=== PATIENT | male | born 1985 | race African-American/Black ===

== ENCOUNTER 2023-05-03 13:20 | Emergency (ER) | payer OTHER ==
--- NOTE | 2023-05-03 14:02 | RAD REPORT ---
EXAM DESCRIPTION: CT - Head Brain Wo Cont - 05/03/2023 1:49 pm CLINICAL HISTORY: WEAKNESS Headache, drowsiness, syncope COMPARISON: No comparisons TECHNIQUE: All CT scans are performed using dose optimization technique as appropriate and may inclu de automated exposure control or mA/KV adjustment according to patient size. FINDINGS: No intracranial hemorrhage, hydrocephalus or extra-axial fluid collection.No areas of brai n edema or evidence of midline shift. The paranasal sinuses and mastoids are clear. The calvarium is intact. IMPRESSION: No acute intracranial abnormality.
[2023-05-03 14:03] LABS: Absolute Lymphocytes (CBC) 1.2 K/uL (0.7-4.9); Hematocrit 37.1 % (39.6-49.0); Lymphocytes % 27.6 % (15.3-44.8); MCV 92.5 fL (80-100); MPV 9.6 fL (7.6-11.3); RBC Red Blood Cell Count 4.01 M/uL (4.33-5.43)
[2023-05-03] MEDS ORDERED: ACETAMINOPHEN 500 MG TAB ONE (14:03)
[2023-05-03] MEDS ORDERED: NA CHLORIDE 0.9% 1,000 ML ONE (14:03)
[2023-05-03] MEDS ORDERED: ONDANSETRON 4 MG/2 ML VIAL ONE (14:03)
[2023-05-03] MEDS ORDERED: FAMOTIDINE 20 MG/2 ML VIAL IV ONE (14:03)
[2023-05-03 14:21] LABS: Bilirubin Direct 0.2 mg/dL (0-0.2); Bilirubin Total 0.6 mg/dL (0.2-1.0); Potassium 3.7 mEq/L (3.5-5.1)
[2023-05-03 14:22] LABS: Albumin 3.9 g/dL (3.4-5.0); Bilirubin Indirect, Calculated 0.4 mg/dL (0.2-0.8); Magnesium 2.1 mg/dL (1.6-2.4); Troponin High Sensitivity 9.8 pg/mL (<58.9)
[2023-05-03 14:51] LABS: Platelet Estimate DECR; White Blood Cell Scan OK (OK)
[2023-05-03 14:52] LABS: Blood Morphology Comment NOT SEEN (NOT SEEN)
--- NOTE | 2023-05-03 14:58 | ER ---
Nurse's Notes [facility] Name: Fernando Thompson Age: 37 yrs Sex: Male : 1985 Arrival Date: 05/03/2023 Time: 13:20 Bed 3 Private MD: Diagnosis: Weakness;Altered mental status, unspecified Presentation: 05/03 13:26 Chief complaint: EMS states: Toned out for vomiting and syncopal episode. Pt denies jl7 LOC, reports "I was working out, stretching and vomited." Denies loss of consciousness. Reports chronic low back pain that worse today. Coronavirus screen: At this time, the client does not indicate any symptoms associated with coronavirus-19. Ebola Screen: No symptoms or risks identified at this time. Initial Sepsis Screen: Does the patient meet any 2 criteria? No. Patient's initial sepsis screen is negative. Does the patient have a suspected source of infection? No. Patient's initial sepsis screen is negative. Risk Assessment: Do you want to hurt yourself or someone else? Patient reports no desire to harm self or others. Onset of symptoms is unknown. Care prior to arrival: IV initiated. 18 GA, in the right antecubital area, Glucose check: 107. 13:26 Method Of Arrival: EMS: [facility] 7 13:26 Acuity: LETICIA 3 jl7 Triage Assessment: 13:29 General: Appears in no apparent distress. uncomfortable, Behavior is calm, cooperative, jl7 appropriate for age. Pain: Complains of pain in left low back Pain currently is 9 out of 10 on a pain scale. Neuro: Level of Consciousness is awake, alert, obeys commands, Oriented to person, place, time, situation. Cardiovascular: Patient's skin is warm and dry. Respiratory: Airway is patent Respiratory effort is even, unlabored, Respiratory pattern is regular, symmetrical. GI: Reports nausea, vomiting, Patient currently denies diarrhea. Derm: Skin is pink, warm \\T\\ dry. Historical: - Allergies: 13:29 PENICILLINS; jl7 - Home Meds: 13:29 None [Active]; jl7 - PMHx: 13:29 None; jl7 - Immunization history:: Adult Immunizations unknown. - Social history:: Smoking status: unknown. Screenin:33 [facility] ED Fall Risk Assessment (Adult) History of falling in the last 3 months, jl7 including since admission No falls in past 3 months (0 pts) Confusion or Disorientation No (0 pts) Intoxicated or Sedated No (0 pts) Impaired Gait No (0 pts) Mobility Assist Device Used No (0 pt) Altered Elimination No (0 pt) Score/Fall Risk Level 0 - 2 = Low Risk Oriented to surroundings, Maintained a safe environment. Abuse screen: Denies threats or abuse. Denies injuries from another. Nutritional screening: No deficits noted. Tuberculosis screening: No symptoms or risk factors identified. Assessment: 13:45 General: See triage assessment. jl7 14:45 Reassessment: Patient appears in no apparent distress at this time. No changes from jl7 previously documented assessment. Patient and/or family updated on plan of care and expected duration. Pain level reassessed. Patient is alert, oriented x 3, equal unlabored respirations, skin warm/dry/pink. Vital Signs: 13:26 BP 107 / 64; Pulse 70; Resp 15; Temp 98.8; Pulse Ox 95% ; Pain 9/10; jl7 15:00 BP 132 / 79; Pulse 52; Resp 15; Pulse Ox 100% ; jl7 13:26 Pain Scale: Adult jl7 ED Course: 13:23 Patient arrived in ED. kc6 13:24 Aguila Carl MD is Attending Physician. kdr 13:26 Umu Ramsey, JULISA is Primary Nurse. jl7 13:29 Triage completed. jl7 13:29 Arm band placed on right wrist. jl7 13:33 Patient has correct armband on for positive identification. jl7 13:45 No provider procedures requiring assistance completed. Maintain EMS IV. Dressing jl7 intact. Good blood return noted. Site clean \\T\\ dry. Gauge \\T\\ site: 18left FA. 13:45 Initial lab(s) drawn, by ED staff, sent to lab. EKG done, by ED staff, reviewed by brock Carl MD. 13:50 CT Head Brain wo Cont In Process Unspecified. EDMS 15:08 XRAY Chest (1 view) In Process Unspecified. EDMS 15:33 IV discontinued, intact, bleeding controlled, No redness/swelling at site. Pressure jl7 dressing applied. Administered Medications: 14:05 Drug: NS 0.9% IV 1000 ml Route: IV; Rate: 1 bolus; Site: right antecubital; jl7 14:05 Drug: Ondansetron IVP 4 mg Route: IVP; Site: right antecubital; jl7 14:09 Drug: Famotidine IVP 20 mg Route: IVP; Site: right antecubital; jl7 14:12 Drug: Acetaminophen PO 1000 mg Route: PO; jl7 Medication: 13:33 VIS not applicable for this client. jl7 Outcome: 14:57 Discharge ordered by . kdr 15:33 Discharged to Law Enforcement jl7 15:33 Condition: stable 15:33 Discharge instructions given to patient, police, Instructed on discharge instructions, follow up and referral plans. medication usage, Demonstrated understanding of instructions, follow-up care, medications, Prescriptions given X 1. 15:35 Patient left the ED. jl7 Signatures: Dispatcher [employer] EDMS Aguila Carl MD MD kdr Leal, Jahala RN RN jl7 Padmini Lockett RN RN kc6
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
[2023-05-03 15:51] VITALS: TEMP 98.8
[2023-05-03 15:52] VITALS: BP 132/79; O2SAT 100
--- NOTE | 2023-05-03 16:55 | RAD REPORT ---
EXAM DESCRIPTION: RAD - Chest Single View - 05/03/2023 4:50 pm CLINICAL HISTORY: weakness Chest pain. COMPARISON: No comparisons FINDINGS: Portable technique limits examination quality. The lungs are grossly clear. The heart is normal in size. No displaced fractures. IMPRESSION: No acute intrathoracic process suspected.
--- NOTE | 2023-05-05 12:35 | EKG ---
Test Date: 2023-05-03 Test Time: 14:19:27 Bracelet Former: LATA MEASUREMENT RESULTS: Intervals: Rate: 51 AK: 154 QRSD: 96 QT: 424 QTc: 390 [place]: P: 28 AK: 154 QRS: 73 T: 49 INTERPRETIVE STATEMENTS: Sinus bradycardia Otherwise normal ECG No previous ECG available for comparison Electronically Signed On 05-05-23 12:33:26 CDT by Ger Blackburn
== END 2023-05-03 15:35 | disposition home or self-care (01) ==
LOC: ER 13:20
DX: R41.82 Altered mental status, unspecified (principal); R53.1 Weakness; Z88.0 Allergy status to penicillin
CPT/HCPCS: 93005; 85025; 80048; 36415; 83735; 80076; 84484; 83880; 70450; 71045; 96375; 96374; 99284; J2405; J7030

== ENCOUNTER 2023-09-03 23:38 | Emergency (ER) | payer OTHER ==
[2023-09-04 00:16] LABS: Absolute Lymphocytes (CBC) 1.5 K/uL (0.7-4.9); Hematocrit 36.5 % (39.6-49.0); Lymphocytes % 13.5 % (15.3-44.8); MCV 92.1 fL (80-100); MPV 8.5 fL (7.6-11.3); Platelets 193 thou/uL (152-406); RBC Red Blood Cell Count 3.96 M/uL (4.33-5.43)
[2023-09-04 00:28] LABS: Potassium 3.8 mEq/L (3.5-5.1)
[2023-09-04 01:17] LABS: Specific Gravity 1.017 (1.005-1.030); Urine Bilirubin NEGATIVE (Negative); Urine Blood Negative (Negative); Urine Clarity Clear (Clear); Urine Color Colorless (Yellow); Urine Glucose NEGATIVE (Negative); Urine Protein NEGATIVE (Negative); Urine Urobilinogen Normal (Normal)
[2023-09-04] MEDS ORDERED: IBUPROFEN 400 MG TAB ONE (02:04)
[2023-09-04] MEDS ORDERED: HYDROCODONE/APAP 10/325 TAB ONE (02:05)
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
[2023-09-04 02:35] VITALS: BP 136/73; TEMP 98.3; O2SAT 100
--- NOTE | 2023-09-04 13:49 | RAD REPORT ---
EXAM DESCRIPTION: CT - Head C Spine Cap Ivory Bass - 09/04/2023 6:28 am CLINICAL HISTORY: The patient is 37 years old and is Male; TRAUMA The patient is 37 years old and is Male; TRAUMA TECHNIQUE: Axial computed tomography images of the head/brain and cervical spine with intravenous co ntrast. Sagittal and coronal reformatted images were created and reviewed. This CT exam was perfo rmed using one or more of the following dose reduction techniques: automated exposure control, adju stment of the mA and/or kV according to patient size, and/or use of iterative reconstruction techniqu e. DLP: 2197 mGy*cm COMPARISON: None. FINDINGS: BRAIN: Unremarkable. No hemorrhage. No edema. Normal enhancement. VENTRICLES: Unremarkable. No ventriculomegaly. SKULL: No acute fracture. SINUSES: Unremarkable as visualized. No acute sinusitis. MASTOID AIR CELLS: Unremarkable as visualized. No mastoid effusion. VERTEBRAE: Unremarkable. No acute fracture. Normal alignment. DISCS/SPINAL CANAL/NEURAL FORAMINA: No acute findings. No spinal canal stenosis. SOFT TISSUES: Right parietal occipital scalp swelling. IMPRESSION: 1. Right parietal occipital scalp swelling. 2. No acute intracranial abnormality. 3. No acute cervical spine fracture or subluxation. EXAM DESCRIPTION: CT Chest, Abdomen and Pelvis With Intravenous Contrast CLINICAL HISTORY: The patient is 37 years old and is Male; TRAUMA The patient is 37 years old and is Male; TRAUMA TECHNIQUE: Axial computed tomography images of the chest, abdomen and pelvis with intravenous contra st. Sagittal and coronal reformatted images were created and reviewed. This CT exam was performed using one or more of the following dose reduction techniques: automated exposure control, adjustme nt of the mA and/or kV according to patient size, and/or use of iterative reconstruction technique. COMPARISON: None. FINDINGS: CHEST: LUNGS: Unremarkable. No mass. No consolidation. PLEURAL SPACE: Unremarkable. No significant effusion. No pneumothorax. HEART: Unremarkable. No cardiomegaly. No significant pericardial effusion. No significant cor onary artery calcifications. MEDIASTINUM: Soft tissue density in the anterior mediastinum, likely thymic remnant. ABDOMEN: LIVER: Unremarkable. No mass. GALLBLADDER AND BILE DUCTS: Unremarkable. No calcified stones. No ductal dilation. PANCREAS: Unremarkable. No ductal dilation. No mass. SPLEEN: Unremarkable. No splenomegaly. ADRENALS: Unremarkable. No mass. KIDNEYS AND URETERS: Unremarkable. No hydronephrosis. No solid mass. STOMACH AND BOWEL: Unremarkable. No obstruction. No mucosal thickening. PELVIS: APPENDIX: No findings to suggest acute appendicitis. BLADDER: Unremarkable. No mass. REPRODUCTIVE: Unremarkable as visualized. CHEST, ABDOMEN and PELVIS: INTRAPERITONEAL SPACE: Unremarkable. No significant fluid collection. No free air. BONES/JOINTS: Acute fracture of the left L2 and L3 transverse processes. No dislocation. SOFT TISSUES: Unremarkable. VASCULATURE: Unremarkable. No aortic aneurysm. LYMPH NODES: Unremarkable. No enlarged lymph nodes. IMPRESSION: Acute fracture of the left L2 and L3 transverse processes. No acute intrathoracic, intra-abdominal or pelvic abnormality. Electronically signed by: Sergio Jarrett DO 09/04/2023 1:34 AM CDT Due to temporary technical issues with the PACS/Fluency reporting system, reports are being signed by the in house radiologists without review as a courtesy to insure prompt reporting. The interpreting radiologist is fully responsible for the content of the report.
== END 2023-09-04 02:15 | disposition home or self-care (01) ==
LOC: ER 23:38
DX: S32.029A Unspecified fracture of second lumbar vertebra, initial encounter for closed fracture (principal); S32.039A Unspecified fracture of third lumbar vertebra, initial encounter for closed fracture; S00.83XA Contusion of other part of head, initial encounter; Z88.0 Allergy status to penicillin
CPT/HCPCS: 85025; 80048; 36415; 86900; 86850; 86901; 81003; 70450; 72125; 71260; 74177; 99284; Q9967